=== PATIENT | male | born 1970 | race American Indian/Alaskan Native ===

== ENCOUNTER 2016-10-10 17:42 | Inpatient (IN) | payer MEDICARE, OTHER ==
[2016-10-10] MEDS ORDERED: Sodium Chloride 0.9% 1,000 ML IV ONE (19:28)
--- NOTE | 2016-10-10 19:28 | C.PDOC ---
History Of Present Illness 46 y/o male, with PMHx of multiple sclerosis, presents to ED with complaint of weakness for the last 3 days. Patient states he has been unable to walk due to weakness of lower extremities. Also, reports LUQ abdominal pain. Denies any nausea or vomiting. Patient states he has had similar weakness in the past. Denies headache, fever, chills, chest pain, SOB, or other associated symptoms. Chief Complaint (Nursing): Weakness/Neurological Deficit History Per: Patient History/Exam Limitations: no limitations Onset/Duration Of Symptoms: Days Current Symptoms Are (Timing): Still Present Fall Associated With With Symptoms: No Recent travel outside of the [place]: No Past Medical History Reviewed: Historical Data, Nursing Documentation, Vital Signs Vital Signs: Last Vital Signs Temp 97.8 F 10/10/16 17:51 Pulse 67 10/10/16 17:51 Resp 16 10/10/16 17:51 BP 118/75 10/10/16 17:51 Pulse Ox 98 10/10/16 22:34 - Medical History PMH: Multiple Sclerosis (primary progressive) Denies: Chronic Kidney Disease Family History: States: Diabetes - Social History Hx Tobacco Use: No Hx Alcohol Use: No Hx Substance Use: No - Immunization History Hx Tetanus Toxoid Vaccination: No Hx Influenza Vaccination: No Hx Pneumococcal Vaccination: No Review Of Systems Except As Marked, All Systems Reviewed And Found Negative. Constitutional: Negative for: Fever, Chills Cardiovascular: Negative for: Chest Pain Respiratory: Negative for: Shortness of Breath Gastrointestinal: Positive for: Abdominal Pain. Negative for: Nausea, Vomiting , Diarrhea Skin: Negative for: Rash Neurological: Positive for: Weakness. Negative for: Headache, Dizziness Physical Exam - Physical Exam Appears: Non-toxic, No Acute Distress Skin: Normal Color, Warm, Dry Head: Atraumatic, Normacephalic Chest: Symmetrical Cardiovascular: Rhythm Regular, No Murmur Respiratory: Normal Breath Sounds, No Rales, No Rhonchi, No Wheezing Gastrointestinal/Abdominal: Soft, Tenderness (LUQ), No Guarding, No Rebound Back: Normal Inspection Extremity: Normal ROM, Capillary Refill (< 2 sec. ), Other (weakness BL lower extremities, mild weakness left upper extremity) Neurological/Psych: Oriented x3, Normal Speech, Normal Cognition ED Course And Treatment - Laboratory Results Result Diagrams: 10/10/16 20:02 10/10/16 20:02 O2 Sat by Pulse Oximetry: 98 (RA) Pulse Ox Interpretation: Normal - Radiology CXR: Interpreted by Me, Viewed By Me CXR Interpretation: Yes: No Acute Disease. No: Infiltrates - CT Scan/US CT Abdomen/Pelvis Other Rad Studies (CT/US): Read By Radiologist, Radiology Report Reviewed CT/US Interpretation: IMPRESSION: Fatty liver, no acute solid visceral abnormality; constipation; possible mild ileus, no. obstruction; L5-S1 fusion Progress Note: EKG, CxR, CT abdomen/pelvis, bloodwork ordered and reviewed. Dr. Taveras called, being covered by Dr. Georgette Argueta for admission. Disposition Discussed With : Mary Argueta Doctor Will See Patient In The: Hospital Counseled Patient/Family Regarding: Diagnosis - Disposition Referrals: Hema Blue MD [Staff Provider] - Disposition: HOSPITALIZED Disposition Time: 22:08 Condition: STABLE - POA Present On Arrival: None - Clinical Impression Clinical Impression: Multiple sclerosis exacerbation, Abdominal pain, Gastritis - Scribe Statement The provider has reviewed the documentation as recorded by the Moi Reyna Provider Scribe Attestation: All medical record entries made by the Teddyibabe were at my direction and personally dictated by me. I have reviewed the chart and agree that the record accurately reflects my personal performance of the history, physical exam, medical decision making, and the department course for this patient. I have also personally directed, reviewed, and agree with the discharge instructions and disposition.
[2016-10-10] MEDS ORDERED: Iohexol 240 (50 ml) ONE (19:40)
[2016-10-10] MEDS ORDERED: Sodium Chloride 0.9% 1,000 ML ONE (19:40)
[2016-10-10] MEDS ORDERED: Iohexol 240 (50 ml) PO ONE (20:03)
[2016-10-10 20:18] LABS: CHLORIDE 101 mmol/L (98-107)
[2016-10-10 20:19] LABS: BASO % 0.5 % (0.0-2.0); EOS # 0.1 K/uL (0.0-0.7); EOS % 0.9 % (0.0-4.0); HEMATOCRIT 43.1 % (35.0-51.0); LYMPH # 2.9 K/uL (1.0-4.3); LYMPH % 38.8 % (20.0-40.0); MEAN CELL VOLUME 80.3 fL (80.0-94.0); MEAN CORPUSCULAR HEMOGLOBIN 26.4 pg (27.0-31.0); MEAN CORPUSCULAR HGB CONC 32.8 g/dL (33.0-37.0); MEAN PLATELET VOLUME 8.9 fL (7.2-11.7); MONO # 0.6 K/uL (0.0-0.8); MONO % 8.4 % (0.0-10.0); RED CELL DISTRIBUTION WIDTH 14.3 % (11.5-14.5); SODIUM 138 mmol/L (132-148); WHITE BLOOD COUNT 7.5 K/uL (4.8-10.8)
[2016-10-10 20:20] LABS: POTASSIUM 4.1 mmol/L (3.6-5.2)
[2016-10-10 20:22] LABS: ALB/GLOB RATIO 1.4 (1.0-2.1); ALKALINE PHOSPHATASE 52 U/L (38-126); ALT/SGPT 28 U/L (21-72); AST/SGOT 21 U/L (17-59); BILIRUBIN,TOTAL 0.6 mg/dL (0.2-1.3); BLOOD UREA NITROGEN 14 mg/dL (9-20); CARBON DIOXIDE 27 mmol/L (22-30); GFR AFRICAN-AMERICAN > 60; GLUCOSE,RANDOM 115 mg/dL (75-110); TOTAL PROTEIN 6.7 g/dL (6.3-8.3)
[2016-10-10 20:23] LABS: CALCIUM 8.7 mg/dl (8.6-10.4)
[2016-10-10 20:31] LABS: RBC URINE 36 /hpf (0-3); URINE BACTERIA RARE (<OCC); URINE BILIRUBIN NEGATIVE (NEGATIVE); URINE BLOOD 1+ (NEGATIVE); URINE COLOR Yellow (YELLOW); URINE GLUCOSE (UA) NORMAL (Normal); URINE KETONE NEGATIVE (NEGATIVE); URINE LEUKOCYTE ESTERASE TRACE Leu/uL (Negative); URINE PROTEIN NEGATIVE (NEGATIVE); URINE UROBILINOGEN NORMAL mg/dL (0.2-1.0); WBC URINE 4 /hpf (0-5)
[2016-10-10] MEDS ORDERED: Iohexol 300 100 ML IJ ONE (20:50)
--- NOTE | 2016-10-10 21:54 | CT ---
EXAM: CT Abdomen and Pelvis With Intravenous Contrast CLINICAL HISTORY: 46 years old, male; Pain; Abdominal pain; Localized; Left upper quadrant (luq); Additional info: Abd pain TECHNIQUE: Axial computed tomography images of the abdomen and pelvis with intravenous contrast. This CT exam was performed using one or more of the following dose reduction techniques: automated exposure control, adjustment of the mA and/or kV according to patient size, and/or use of iterative reconstruction technique. Coronal and sagittal reformatted images were created and reviewed. CONTRAST: 100 mL of omnipaque 300 administered intravenously. EXAM DATE/TIME: 10/10/2016 7:28 PM COMPARISON: There are no prior studies for comparison. FINDINGS: Lower thorax: Heart size is normal. There is a small hiatal hernia. There is minimal dependent atelectasis ABDOMEN: Liver: There is fatty infiltration of the liver. Gallbladder and bile ducts: Gallbladder is incompletely distended. Common bile duct is unremarkable. Pancreas: unremarkable Spleen: unremarkable Adrenals: unremarkable Kidneys and ureters: unremarkable Stomach and bowel: Stomach is partially distended. Rotation is normal. There is a mildly distended small bowel loop in the midabdomen. There is no obstruction. Terminal ileum is unremarkable. Appendix is unremarkable. There is a moderately large amount of stool throughout the colon. There is diverticulosis Appendix: See stomach and bowel PELVIS: Bladder: unremarkable Reproductive: Seminal vesicles are unremarkable. Prostate is mildly enlarged. ABDOMEN and PELVIS: Intraperitoneal space: There is no free air or free fluid. Bones/joints: There are postsurgical changes of spinal fusion L5-S1. There is a cage in the L5-S1 disc space. There is L4/L5 disc bulging. Soft tissues: There is a fat-containing umbilical hernia. Vasculature: Vascular structures are unremarkable. There are calcified phleboliths. Lymph nodes: There is shotty adenopathy. IMPRESSION: Fatty liver, no acute solid visceral abnormality; constipation; possible mild ileus, no obstruction; L5-S1 fusion Additional findings as described above.
[2016-10-10] MEDS ORDERED: Alum-Mag Hydrox-Simethicone Susp (30 mL) PO STA (22:04)
[2016-10-10] MEDS ORDERED: Alum-Mag Hydrox-Simethicone Susp (30 mL) ONE (22:27)
[2016-10-11 00:20] VITALS: RESP 20
--- NOTE | 2016-10-11 00:58 | CP.PCM.CON ---
History of Present Illness - History of Present Illness History of Present Illness: 46 y/o male, with PMHx of multiple sclerosis, presents to ED with complaint of weakness for the last 3 days. Patient states he has been unable to walk due to weakness of lower extremities. Also, reports LUQ abdominal pain. Denies any nausea or vomiting. Patient states he has had similar weakness in the past. Denies headache, fever, chills, chest pain, SOB, or other associated symptoms. Chief Complaint (Nursing): Weakness/Neurological Deficit His urine is showing 36 RBCs, 4 WBCs He is sabering from Multiple Sclerosis since more than 20 years and is my patient since more than 15 years. He is receiving Aubagio, and he keeps on changing his medicine on his own. He is also on Ampyra, Zanaflex. History Per: Patient Multiple Sclerosis Relapsing remitting initially that progressed into Progressive. 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 he has left side hemiparesis, poor coordination History/Exam Limitations: no limitations Onset/Duration Of Symptoms: Days Current Symptoms Are (Timing): Still Present Fall Associated With With Symptoms: No Recent travel outside of the [place]: No Past Medical History Reviewed: Historical Data, Nursing Documentation, Vital Signs Vital Signs: Last Vital Signs Temp 97.8 F 10/10/16 17:51 Pulse 67 10/10/16 17:51 Resp 16 10/10/16 17:51 BP 118/75 10/10/16 17:51 Pulse Ox 98 10/10/16 22:34 - Medical History PMH: Multiple Sclerosis Relapsing remitting initially that progressed into Progressive. 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 he has left side hemiparesis, poor coordination Denies: Chronic Kidney Disease Family History: States: Diabetes - Social History Hx Tobacco Use: No Hx Alcohol Use: No Hx Substance Use: No - Immunization History Hx Tetanus Toxoid Vaccination: No Hx Influenza Vaccination: No Hx Pneumococcal Vaccination: No Review Of Systems Except As Marked, All Systems Reviewed And Found Negative. Constitutional: Negative for: Fever, Chills Cardiovascular: Negative for: Chest Pain Respiratory: Negative for: Shortness of Breath Gastrointestinal: Positive for: Abdominal Pain. Negative for: Nausea, Vomiting , Diarrhea Skin: Negative for: Rash Neurological: Positive for: Weakness. Negative for: Headache, Dizziness Physical Exam - Physical Exam Appears: Non-toxic, No Acute Distress Skin: Normal Color, Warm, Dry Head: Atraumatic, Normacephalic Chest: Symmetrical Cardiovascular: Rhythm Regular, No Murmur Respiratory: Normal Breath Sounds, No Rales, No Rhonchi, No Wheezing Gastrointestinal/Abdominal: Soft, Tenderness (LUQ), No Guarding, No Rebound Back: Normal Inspection Extremity: Normal ROM, Capillary Refill (< 2 sec. ), Other (weakness BL lower extremities, mild weakness left upper extremity) Neurological/Psych: Oriented x3, Normal Speech, Normal Cognition Clinical Impression: Multiple sclerosis exacerbation, Abdominal pain, Gastritis Past Patient History - Infectious Disease Hx of Infectious Diseases: None - Past Medical History & Family History Past Medical History?: Yes - Past Social History Smoking Status: Never Smoked - CARDIAC Hx Cardiac Disorders: No - PULMONARY Hx Respiratory Disorders: No - NEUROLOGICAL Hx Multiple Sclerosis: Yes (primary progressive) - HEENT Hx HEENT Problems: No - RENAL Hx Chronic Kidney Disease: No - ENDOCRINE/METABOLIC Hx Endocrine Disorders: No - HEMATOLOGICAL/ONCOLOGICAL Hx Blood Disorders: No - INTEGUMENTARY Hx Dermatological Problems: No - MUSCULOSKELETAL/RHEUMATOLOGICAL Hx Falls: Yes - GASTROINTESTINAL Hx Gastrointestinal Disorders: No - GENITOURINARY/GYNECOLOGICAL Hx Genitourinary Disorders: No - PSYCHIATRIC Hx Substance Use: No - SURGICAL HISTORY Hx Surgeries: Yes Hx Orthopedic Surgery: Yes (spinal fusion for l4-l5) - ANESTHESIA Hx Anesthesia: Yes Hx Anesthesia Reactions: No Meds Home Medications: Home Medication List Medication Instructions Recorded Confirmed Type ALPRAZolam [Xanax] 0.25 mg PO HS PRN #10 tab 10/12/16 Rx Cyclobenzaprine [Flexeril] 5 mg PO TID tab 10/12/16 Rx Dalfampridine [Ampyra] 10 mg PO Q12 10/12/16 Rx Docusate [Colace] 100 mg PO DAILY cap 10/12/16 Rx Enoxaparin [Lovenox] 60 mg SC DAILY syr 10/12/16 Rx Furosemide [Lasix] 20 mg PO DAILY tab 10/12/16 Rx Insulin Human Regular [Novolin R] 0 unit SC ACHS unit 10/12/16 Rx Pantoprazole [Protonix Inj] 40 mg IVP DAILY vial 10/12/16 Rx Polyethylene Glycol 3350 [Miralax] 17 gm PO BID packet 10/12/16 Rx methylPREDNISolone [Solu-Medrol] 250 mg IVP Q6H #14 ml 10/12/16 Rx Allergies/Adverse Reactions: Allergies Allergy/AdvReac Type Severity Reaction Status Date / Time chocolate flavor Allergy DIZZINESS Verified 10/12/16 20:58 corn Allergy DIZZINESS Verified 10/12/16 20:58 - Medications Medications: Current Medications Sodium Chloride (Sodium Chloride 0.9%) 1,000 mls @ 100 mls/hr IV .Q10H ONE Stop: 10/11/16 05:27 Last Admin: 10/10/16 19:55 Dose: 100 mls/hr Physical Exam - Neurological Exam Additional comments: Mental Status: Awake, Alert, Oriented X 3, Normal Memory X 3 Speech is Dysarthric, fluent coherent Cranial Nerves II to XII: Left facial Palsy UMNL type Left BETTY Tongue is central, normal Gag reflex. He is able to shrug his shoulders. less on the left side. Motor: Increased spastic tone on the left side of UE and LE Left Pronator Drift left hemiparesis DTR: exaggerated on the left Toes are upgoing on the left side Sensory: sense of pain on the left side Cerebellar: Poor coordination in general, mainly on the left side. Abnormal FNT of the Left and Poor movements on the Left Stature and Gait: Unable to walk or Stand. Results - Vital Signs Recent Vital Signs: Last Vital Signs Temp 97.6 F 10/11/16 00:18 Pulse 61 10/11/16 00:18 Resp 20 10/11/16 00:18 BP 125/80 10/11/16 00:18 Pulse Ox 95 10/11/16 00:18 - Labs Result Diagrams: 10/10/16 20:02 10/10/16 20:02 Assessment & Plan (1) Abdominal pain Status: Acute (2) Gastritis Status: Acute (3) Multiple sclerosis exacerbation Status: Acute (4) Back strain Status: Chronic (5) Difficulty walking Status: Acute (6) Facial palsy Assessment and Plan: mild condition of left Facial Palsy. Status: Acute
[2016-10-11] MEDS: Sucralfate 1 gm/10 ml Oral Susp UD PO STA ×2 (01:13→02:37)
[2016-10-11] MEDS: (Novolin R) Insulin Human Regular 100 units/ml vial SC SCH ×5 (08:19→22:05)
--- NOTE | 2016-10-11 08:55 | RAD ---
PROCEDURE: CHEST RADIOGRAPH, 1 VIEW HISTORY: Abdominal pain COMPARISON: 03/14/2014 FINDINGS: LUNGS: No focal infiltrate or effusion. Upper lobe granulomatous changes. PLEURA: No pneumothorax or pleural fluid seen. CARDIOVASCULAR: Normal. OSSEOUS STRUCTURES: No significant abnormalities. VISUALIZED UPPER ABDOMEN: Normal. OTHER FINDINGS: None. IMPRESSION: No focal infiltrate or effusion. Upper lobe granulomatous changes.
[2016-10-11] MEDS ORDERED: DALFAMPRIDINE 10 MG PO SCH (10:00)
--- NOTE | 2016-10-11 11:27 | CP.PCM.HP ---
History of Present Illness - History of Present Illness History of Present Illness: h and p dicteted. Present on Admission - Present on Admission Any Indicators Present on Admission: No History of DVT/PE: No History of Uncontrolled Diabetes: No Review of Systems - EENT Eyes: absent: Decreased Night Vision, Diplopia Nose/Mouth/Throat: absent: Epistaxis, Dysphagia - Cardiovascular Cardiovascular: absent: Dyspnea on Exertion, Edema - Respiratory Respiratory: absent: Snoring - Gastrointestinal Gastrointestinal: absent: Excessive Flatus - Genitourinary Genitourinary: absent: Change in Urinary Stream - Musculoskeletal Musculoskeletal: absent: Arthralgias - Integumentary Integumentary: absent: Change in Pigmentation Past Patient History - Infectious Disease Hx of Infectious Diseases: None - Past Medical History & Family History Past Medical History?: Yes - Past Social History Smoking Status: Never Smoked Chewing Tobacco Use: No Cigar Use: No Alcohol: None - CARDIAC Hx Cardiac Disorders: No - PULMONARY Hx Respiratory Disorders: No - NEUROLOGICAL Hx Multiple Sclerosis: Yes (primary progressive) - HEENT Hx HEENT Problems: No - RENAL Hx Chronic Kidney Disease: No - ENDOCRINE/METABOLIC Hx Endocrine Disorders: No - HEMATOLOGICAL/ONCOLOGICAL Hx Blood Disorders: No - INTEGUMENTARY Hx Dermatological Problems: No - MUSCULOSKELETAL/RHEUMATOLOGICAL Hx Falls: Yes - GASTROINTESTINAL Hx Gastrointestinal Disorders: No - GENITOURINARY/GYNECOLOGICAL Hx Genitourinary Disorders: No - PSYCHIATRIC Hx Substance Use: No - SURGICAL HISTORY Hx Surgeries: Yes Hx Orthopedic Surgery: Yes (spinal fusion for l4-l5) - ANESTHESIA Hx Anesthesia: Yes Hx Anesthesia Reactions: No Meds Home Medications: Home Medication List Medication Instructions Recorded Confirmed Type Dalfampridine [Ampyra] 10 mg PO Q12 10/12/16 Rx Docusate [Colace] 100 mg PO DAILY cap 10/12/16 Rx Allergies/Adverse Reactions: Allergies Allergy/AdvReac Type Severity Reaction Status Date / Time chocolate flavor Allergy DIZZINESS Verified 10/12/16 20:58 corn Allergy DIZZINESS Verified 10/12/16 20:58 Physical Exam - Constitutional Appears: Well - Head Exam Head Exam: ATRAUMATIC, NORMAL INSPECTION, NORMOCEPHALIC - Eye Exam Eye Exam: EOMI, Normal appearance, PERRL Pupil Exam: NORMAL ACCOMODATION, PERRL - ENT Exam ENT Exam: Mucous Membranes Moist, Normal Exam - Neck Exam Neck exam: Positive for: Normal Inspection - Respiratory Exam Respiratory Exam: Clear to Auscultation Bilateral, NORMAL BREATHING PATTERN - Cardiovascular Exam Cardiovascular Exam: REGULAR RHYTHM - GI/Abdominal Exam GI & Abdominal Exam: Normal Bowel Sounds, Soft. absent: Tenderness - Rectal Exam Rectal Exam: NORMAL INSPECTION - Exam Exam: Circumcision, NORMAL INSPECTION External exam: NORMAL EXTERNAL EXAM Speculum exam: NORMAL SPECULUM EXAM Bimanual exam: NORMAL BIMANUAL EXAM - Extremities Exam Extremities exam: Positive for: normal inspection - Back Exam Back exam: NORMAL INSPECTION - Neurological Exam Neurological exam: Alert, CN II-XII Intact, Normal Gait, Oriented x3, Reflexes Normal - Psychiatric Exam Psychiatric exam: Normal Affect, Normal Mood - Skin Skin Exam: Dry, Intact, Normal Color, Warm Results - Vital Signs Recent Vital Signs: Last Vital Signs Temp 98.3 F 10/11/16 08:08 Pulse 61 10/11/16 08:08 Resp 20 10/11/16 08:08 BP 99/60 L 10/11/16 08:08 Pulse Ox 98 10/11/16 08:08 - Labs Result Diagrams: 10/10/16 20:02 10/10/16 20:02 Labs: Laboratory Results - last 24 hr 10/11/16 10/11/16 10/11/16 06:26 06:47 06:47 ESR POC Glucose (mg/dL) 81 C-React Prot High Sens Vitamin B12 > 1000 H 25-OH Vitamin D Total 104.0 H 10/11/16 10/11/16 06:47 06:47 ESR 2 POC Glucose (mg/dL) C-React Prot High Sens 0.33 L Vitamin B12 25-OH Vitamin D Total Assessment & Plan - Assessment and Plan (Free Text) Assessment: MS. Plan: NEURO EVAL - Date & Time Date: 10/11/16 Time: 11:32 Decision To Admit - Pt Status Changed To: Hospital Disposition Of: Inpatient - Admit Certification Admit to Inpatient:: After my assessment, the patient will require hospitalization for at least two midnights. This is because of the severity of symptoms shown, intensity of services needed, and/or the medical risk in this patient being treated as an outpatient. - . Bed Request Type: Telemetry Admitting Physician: TIFFANIE
--- NOTE | 2016-10-11 12:25 | HP ---
HISTORY OF PRESENT ILLNESS: This is a 46-year-old male with history of multiple sclerosis. The tashia ent came to the Emergency Room complaining of weakness for the last 3 days. The patient states that he has been unable to walk due to weakness of lower extremity. The patient also reports left upper q uadrant abdominal pain. The patient denies nausea or vomiting. The patient also has similar weaknes s in the past. The patient denies headache, fever, chills, chest pain, shortness of breath or other associated symptoms. REVIEW OF SYSTEMS: CARDIOVASCULAR: Negative for chest pain. RESPIRATORY: Negative for shortness of breath. GASTROINTESTINAL: As mentioned above. CENTRAL NERVOUS SYSTEM: The patient complains of generalized weakness and unable to walk because of his previous condition, multiple sclerosis. EXTREMITIES: No edema of the legs. GENITOURINARY: No urinary complaints. PSYCHIATRIC: The patient is stable. All other systems are negative. PAST MEDICAL HISTORY: History of multiple sclerosis. MEDICATIONS: Muscle relaxant, Lasix. SOCIAL HISTORY: Nonsmoker, nonalcoholic, no IVDA. FAMILY HISTORY: No known family history. ALLERGIES: THE PATIENT IS ALLERGIC TO CHOCOLATE, CORN, PEANUTS. PHYSICAL EXAMINATION: GENERAL: The patient alert, orientated, comfortable, with left upper quadrant pain. VITAL SIGNS: Temperature 97.8, pulse 67, respirations 16, and blood pressure 118/75 mmHg, pulse ox i s 98% on room air. HEENT: Normal. NECK: JVP is flat. Carotids, no bruit. LUNGS: No rales, no wheezing. HEART: S1, S2 normal. No gallop, no murmur. ABDOMEN: Soft, mildly tender. No rebound. No mass. CENTRAL NERVOUS SYSTEM: Generalized weakness present. No focal neurological complaints. LABORATORY DATA: On admission, lab work is grossly within normal limits. IMPRESSION: Acute exacerbation of multiple sclerosis. Abdominal pain. Case was discussed with ____, neurologist. The patient was advised to be admitted. The patient was started on Solu-Medrol. Neurologic evaluation. We will continue all the medications. The patient needs EEG. Other workup as needed. Mary Argueta MD cc: [phone] TT: 10/11/2016 12:24:41 sn
[2016-10-11] MEDS: Enoxaparin 60 mg Syringe SC SCH (12:56)
--- NOTE | 2016-10-11 13:09 | CP.PCM.CON ---
History of Present Illness - History of Present Illness History of Present Illness: 46 y/o male, with PMHx of multiple sclerosis, presents to ED with complaint of weakness for the last 3 days. Patient states he has been unable to walk due to weakness of lower extremities. Also, reports LUQ abdominal pain. Denies any nausea or vomiting. Patient states he has had similar weakness in the past. Denies headache, fever, chills, chest pain, SOB, or other associated symptoms. Chief Complaint (Nursing): Weakness/Neurological Deficit His urine is showing 36 RBCs, 4 WBCs He is sabering from Multiple Sclerosis since more than 20 years and is my patient since more than 15 years. He is receiving Aubagio, and he keeps on changing his medicine on his own. He is also on Ampyra, Zanaflex. History Per: Patient Multiple Sclerosis Relapsing remitting initially that progressed into Progressive. 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 he has left side hemiparesis, poor coordination History/Exam Limitations: no limitations Onset/Duration Of Symptoms: Days Current Symptoms Are (Timing): Still Present Fall Associated With With Symptoms: No Recent travel outside of the [place]: No Past Medical History - Medical History PMH: Multiple Sclerosis Relapsing remitting initially that progressed into Progressive. 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 he has left side hemiparesis, poor coordination Denies: Chronic Kidney Disease Review of Systems - Constitutional Constitutional: As Per HPI - EENT Eyes: absent: As Per HPI, Blind Spots, Blurred Vision, Change in Vision, Decreased Night Vision, Diplopia, Discharge, Dry Eye, Exophthalmos, Floaters, Irritation, Itchy Eyes, Loss of Peripheral Vision, Pain, Photophobia, Requires Corrective Lenses, Sees Flashes, Spots in Vision, Tunnel Vision, Other Visual Disturbances, Loss of Vision, Other Ears: absent: As Per HPI, Decreased Hearing, Ear Discharge, Ear Pain, Tinnitus, Abnormal Hearing, Disequilibrium, Dizziness, Other Nose/Mouth/Throat: absent: As Per HPI, Epistaxis, Nasal Congestion, Nasal Discharge, Nasal Obstruction, Nasal Trauma, Nose Pain, Post Nasal Drip, Sinus Pain, Sinus Pressure, Bleeding Gums, Change in Voice, Dental Pain, Dry Mouth, Dysphagia, Halitosis, Hoarsness, Lip Swelling, Mouth Lesions, Mouth Pain, Odynophagia, Sore Throat, Throat Swelling, Tongue Swelling, Facial Pain, Neck Pain, Neck Mass, Other - Cardiovascular Cardiovascular: absent: As Per HPI, Acrocyanosis, Chest Pain, Chest Pain at Rest , Chest Pain with Activity, Claudication, Diaphoresis, Dyspnea, Dyspnea on Exertion, Edema, Irregular Heart Rhythm, Pain Radiating to Arm/Neck/Jaw, Leg Edema, Leg Ulcers, Lightheadedness, Orthopnea, Palpitations, Paroxysmal Nocturnal Dyspnea, Pedal Edema, Radiating Pain, Rapid Heart Rate, Slow Heart Rate, Syncope, Other - Respiratory Respiratory: absent: As Per HPI, Cough, Dyspnea, Hemoptysis, Dyspnea on Exertion , Wheezing, Snoring, Stridor, Pain on Inspiration, Chest Congestion, Excessive Mucous Production, Change in Mucous Color, Pain with Coughing, Other - Gastrointestinal Gastrointestinal: absent: As Per HPI, Abdominal Pain, Belching, Bloating, Change in Bowel Habits, Change in Stool Character, Coffee Ground Emesis, Constipation, Cramping, Diarrhea, Dyspepsia, Dysphagia, Early Satiety, Excessive Flatus, Fecal Incontinence, Heartburn, Hematemesis, Hematochezia, Loose Stools, Melena, Nausea, Odynophagia, Temesmus, Vomiting, Other - Genitourinary Genitourinary: absent: As Per HPI, Change in Urinary Stream, Difficulty Urinating, Dysuria, Flank Pain, Hematuria, Pyuria, Nocturia, Urinary Incontinence, Urinary Frequency, Urinary Hesitance, Urinary Urgency, Voiding Freq/Small Amts, Freq UTI, Hx Renal/Bladder Calculi, Hx /Renal Surgery, Bladder Distension, Other - Musculoskeletal Musculoskeletal: absent: As Per HPI, Abnormal Gait, Arthralgias, Atrophy, Back Pain, Deformity, Joint Swelling, Limited Range of Motion, Loss of Height, Muscle Cramps, Muscle Weakness, Myalgias, Neck Pain, Numbness, Radiating Pain into Limb, Stiffness, Tingling, Other - Integumentary Integumentary: absent: As Per HPI, Acne, Alopecia, Bleeding Lesions, Change in Hair, Change in Nails, Change in Pigmentation, Changing Lesions, Dry Skin, Erythema, Furuncle, Hirsutism, Lesions, New Lesions, Non-Healing Lesions, Photosensitivity, Pruritus, Rash, Skin Pain, Skin Ulcer, Sores, Striae, Swelling , Unusual Bruising, Wounds, Jaundice, Other - Neurological Neurological: As Per HPI - Psychiatric Psychiatric: absent: As Per HPI, Abnormal Sleep Pattern, Anhedonia, Anxiety, Auditory Hallucinations, Behavioral Changes, Change in Appetite, Change in Libido, Confusion, Depression, Difficulty Concentrating, Hallucinations, Homicidal Ideation, Hopelessness, Irritability, Memory Loss, Mood Swings, Panic Attacks, Paranoia, Suicidal Ideation, Visual Hallucinations, Tactile Hallucinations, Other - Endocrine Endocrine: absent: As Per HPI, Change in Body Appearance, Change in Libido, Cold Intolorance, Deepening of Voice, Excessive Sweating, Fatigue, Flushing, Heat Intolorance, Increase in Ring/Shoe/Hat Size, Palpitations, Polydipsia, Polyphagia, Polyuria, Other - Hematologic/Lymphatic Hematologic: absent: As Per HPI, Easy Bleeding, Easy Bruising, Lymphadenopathy, Other Past Patient History - Infectious Disease Hx of Infectious Diseases: None - Past Medical History & Family History Past Medical History?: Yes - Past Social History Smoking Status: Never Smoked Chewing Tobacco Use: No Cigar Use: No Alcohol: None - CARDIAC Hx Cardiac Disorders: No - PULMONARY Hx Respiratory Disorders: No - NEUROLOGICAL Hx Multiple Sclerosis: Yes (primary progressive) - HEENT Hx HEENT Problems: No - RENAL Hx Chronic Kidney Disease: No - ENDOCRINE/METABOLIC Hx Endocrine Disorders: No - HEMATOLOGICAL/ONCOLOGICAL Hx Blood Disorders: No - INTEGUMENTARY Hx Dermatological Problems: No - MUSCULOSKELETAL/RHEUMATOLOGICAL Hx Falls: Yes - GASTROINTESTINAL Hx Gastrointestinal Disorders: No - GENITOURINARY/GYNECOLOGICAL Hx Genitourinary Disorders: No - PSYCHIATRIC Hx Substance Use: No - SURGICAL HISTORY Hx Surgeries: Yes Hx Orthopedic Surgery: Yes (spinal fusion for l4-l5) - ANESTHESIA Hx Anesthesia: Yes Hx Anesthesia Reactions: No Meds Home Medications: Home Medication List Medication Instructions Recorded Confirmed Type ALPRAZolam [Xanax] 0.25 mg PO HS PRN #10 tab 10/12/16 Rx Cyclobenzaprine [Flexeril] 5 mg PO TID tab 10/12/16 Rx Dalfampridine [Ampyra] 10 mg PO Q12 10/12/16 Rx Docusate [Colace] 100 mg PO DAILY cap 10/12/16 Rx Enoxaparin [Lovenox] 60 mg SC DAILY syr 10/12/16 Rx Furosemide [Lasix] 20 mg PO DAILY tab 10/12/16 Rx Insulin Human Regular [Novolin R] 0 unit SC ACHS unit 10/12/16 Rx Pantoprazole [Protonix Inj] 40 mg IVP DAILY vial 10/12/16 Rx Polyethylene Glycol 3350 [Miralax] 17 gm PO BID packet 10/12/16 Rx methylPREDNISolone [Solu-Medrol] 250 mg IVP Q6H #14 ml 10/12/16 Rx Allergies/Adverse Reactions: Allergies Allergy/AdvReac Type Severity Reaction Status Date / Time chocolate flavor Allergy Verified 10/10/16 19:26 corn Allergy Verified 10/10/16 19:26 peanuts Allergy Unknown ANAPHYLAXIS Uncoded 04/22/15 12:38 peas Allergy Unknown SHORTNESS Uncoded 04/22/15 12:38 OF BREATH - Medications Medications: Current Medications Alprazolam (Xanax) 0.25 mg PO PRN Stop: 10/18/16 02:47 Cyclobenzaprine HCl (Flexeril) 5 mg PO TID [facility] Last Admin: 10/11/16 12:53 Dose: 5 mg Docusate Sodium (Colace) 100 mg PO DAILY [facility] Last Admin: 10/11/16 12:53 Dose: 100 mg Enoxaparin Sodium (Lovenox) 60 mg SC DAILY [facility] Last Admin: 10/11/16 12:56 Dose: 60 mg Furosemide (Lasix) 20 mg PO DAILY [facility] Last Admin: 10/11/16 12:53 Dose: 20 mg Home Med (Dalfampridine [Ampyra]) 10 mg PO Q12 [facility] Methylprednisolone 250 mg/ (Sodium Chloride) 104 mls @ 208 mls/hr IVP Q6H [facility] Stop: 10/16/16 03:01 Last Admin: 10/11/16 09:51 Dose: 208 mls/hr Insulin Human Regular (Novolin R) 0 unit SC ACHS [facility] PRN Reason: Protocol Last Admin: 10/11/16 12:00 Dose: Not Given Pantoprazole Sodium (Protonix Inj) 40 mg IVP DAILY [facility] Last Admin: 10/11/16 12:51 Dose: 40 mg Pneumococcal Polyvalent Vaccine (Pneumovax 23 Vaccine) 0.5 ml IM .ONCE ONE Stop: 10/13/16 14:01 Physical Exam - Constitutional Appears: Non-toxic, Cachectic, Chronically Ill - Head Exam Head Exam: NORMOCEPHALIC - Eye Exam Eye Exam: PERRL. absent: Scleral icterus - ENT Exam ENT Exam: Mucous Membranes Dry, Normal External Ear Exam - Neck Exam Neck exam: Negative for: Lymphadenopathy, Thyromegaly - Respiratory Exam Respiratory Exam: Decreased Breath Sounds, Rhonchi - Cardiovascular Exam Cardiovascular Exam: REGULAR RHYTHM, +S1, +S2 - GI/Abdominal Exam GI & Abdominal Exam: Diminished Bowel Sounds, Soft. absent: Tenderness - Rectal Exam Rectal Exam: Deferred - Exam Exam: NORMAL INSPECTION - Extremities Exam Extremities exam: Negative for: calf tenderness, pedal edema - Back Exam Back exam: absent: CVA tenderness (L), CVA tenderness (R) - Neurological Exam Neurological exam: Abnormal Gait, Alert, Motor Sensory Deficit, Oriented x3 - Psychiatric Exam Psychiatric exam: Depressed - Skin Skin Exam: Dry Results - Vital Signs Recent Vital Signs: Last Vital Signs Temp 98.3 F 10/11/16 08:08 Pulse 61 10/11/16 08:08 Resp 20 10/11/16 08:08 BP 115/82 10/11/16 12:53 Pulse Ox 98 10/11/16 08:08 - Labs Result Diagrams: 10/10/16 20:02 10/10/16 20:02 Labs: Laboratory Results - last 24 hr 10/11/16 10/11/16 10/11/16 06:26 06:47 06:47 ESR POC Glucose (mg/dL) 81 C-React Prot High Sens Vitamin B12 > 1000 H 25-OH Vitamin D Total 104.0 H 10/11/16 10/11/16 06:47 06:47 ESR 2 POC Glucose (mg/dL) C-React Prot High Sens 0.33 L Vitamin B12 25-OH Vitamin D Total Assessment & Plan (1) Multiple sclerosis exacerbation Status: Acute - Assessment and Plan (Free Text) Assessment: r/o infection await cultures
--- NOTE | 2016-10-11 19:22 | VASCLAB ---
PROCEDURE: HISTORY: R/O CVA COMPARISON: None available. TECHNIQUE: Grayscale and duplex Doppler evaluation of the cervical carotid and vertebral arteries were performed. The common carotid, carotid bifurcations and cervical Internal Carotid Artery (ICA) and proximal External Carotid Artery (ECA) were evaluated. The vertebral arteries were evaluated for gross patency and flow direction. Report prepared by Kana Doshi, BS, RVT FINDINGS: RIGHT CAROTID ARTERIES: 1. Common Carotid Artery: No significant focal plaque formation of the right common carotid artery. Maximum Peak Systolic velocity: 137 cm/sec: End-diastolic velocity 22 cm/sec. 2. Carotid Bifurcation: No significant focal plaque formation. Maximum Peak Systolic velocity: 119 cm/sec: End-diastolic velocity 16 cm/sec. 3. Internal Carotid Artery: Minimal plaque formation of the right proximal ICA which does not result in hemodynamically significant stenosis. Plaque description: Homogeneous 3.1. Proximal Segment: Peak systolic velocity 94 cm/sec: End-diastolic velocity 23 cm/sec - % stenosis 0-15% 3.2. Middle Segment: Peak systolic velocity 75 cm/sec: End-diastolic velocity 25 cm/sec - % stenosis 0-15% 3.3. Distal Segment: Peak systolic velocity 72 cm/sec: End-diastolic velocity 28 cm/sec - % stenosis 0-15% 4. External Carotid Artery: No significant focal plaque formation. Peak systolic velocity 109 cm/sec 5. ICA/CCA Ratio: 0.9 LEFT CAROTID ARTERIES: 1. Common Carotid Artery: No significant focal plaque formation of the left common carotid artery. Maximum Peak Systolic velocity: 136 cm/sec: End-diastolic velocity 28 cm/sec. 2. Carotid Bifurcation: No significant focal plaque formation. Maximum Peak Systolic velocity: 103 cm/sec: End-diastolic velocity 22 cm/sec. 3. Internal Carotid Artery: Minimal plaque formation of the left proximal ICA which does not result in hemodynamically significant stenosis. Plaque description: Homogeneous 3.1. Proximal Segment: Peak systolic velocity 60 cm/sec: End-diastolic velocity 23 cm/sec - % stenosis 0-15% 3.2. Middle Segment: Peak systolic velocity 68 cm/sec: End-diastolic velocity 23 cm/sec - % stenosis 0-15% 3.3. Distal Segment: Peak systolic velocity 95 cm/sec: End-diastolic velocity 38 cm/sec - % stenosis 0-15% 4. External Carotid Artery: No significant focal plaque formation. Peak systolic velocity cm/sec 5. ICA/CCA Ratio: 0.8 VERTEBRAL ARTERIES: 1. Right Vertebral Artery: The right vertebral artery flow direction is antegrade. 2. Left Vertebral Artery: The left vertebral artery flow direction is antegrade. OTHER FINDINGS: 1. Right Brachial Blood pressure: 128 mmHg. 2. Left Brachial Blood pressure: 132 mmHg. IMPRESSION: RIGHT: Duplex scan does not suggest hemodynamically significant stenosis of the right extracranial carotid arteries. LEFT: Duplex scan does not suggest hemodynamically significant stenosis of the left extracranial carotid arteries.
[2016-10-12] MEDS: (Novolin R) Insulin Human Regular 100 units/ml vial SC SCH ×3 (07:53→17:24)
[2016-10-12 08:13] LABS: RBC URINE 14 /hpf (0-3); URINE BACTERIA MANY (<OCC); URINE BILIRUBIN NEGATIVE (NEGATIVE); URINE BLOOD 1+ (NEGATIVE); URINE COLOR Yellow (YELLOW); URINE GLUCOSE (UA) 1+ mg/dL (Normal); URINE KETONE NEGATIVE (NEGATIVE); URINE LEUKOCYTE ESTERASE NEG Leu/uL (Negative); URINE PROTEIN NEGATIVE (NEGATIVE); URINE UROBILINOGEN NORMAL mg/dL (0.2-1.0); WBC URINE 3 /hpf (0-5)
[2016-10-12] MEDS: Enoxaparin 60 mg Syringe SC SCH (09:47)
--- NOTE | 2016-10-12 12:08 | CARD ---
APPROVED REPORT EKG Measurement Heart [id number] <Conclusion> Normal sinus rhythm ST elevation, probably due to early repolarization Borderline ECG
[2016-10-12] MEDS: POLYETHYLENE GLYCOL 3350 17 GM/Dose PACKET PO SCH ×2 (12:37→17:29)
--- NOTE | 2016-10-12 13:24 | CP.PCM.PN ---
Subjective - Date & Time of Evaluation Date of Evaluation: 10/12/16 Time of Evaluation: 13:21 - Subjective Subjective: SEVERE LEG WEAKNESS PRESENT. ABD PAIN PRESENT. CONSTIPATED. Objective - Vital Signs/Intake and Output Vital Signs (last 24 hours): Temp Pulse Resp BP Pulse Ox 97.8 F 77 20 120/74 97 10/12/16 09:37 10/12/16 09:37 10/12/16 09:37 10/12/16 09:50 10/12/16 09:37 Intake and Output: 10/12/16 10/12/16 06:59 18:59 Intake Total 1760 Output Total 750 Balance 1010 - Medications Medications: Current Medications Alprazolam (Xanax) 0.25 mg PO HS PRN Stop: 10/18/16 02:47 Cyclobenzaprine HCl (Flexeril) 5 mg PO TID [facility] Last Admin: 10/12/16 09:48 Dose: 5 mg Docusate Sodium (Colace) 100 mg PO DAILY [facility] Last Admin: 10/12/16 09:48 Dose: 100 mg Enoxaparin Sodium (Lovenox) 60 mg SC DAILY [facility] Last Admin: 10/12/16 09:47 Dose: 60 mg Furosemide (Lasix) 20 mg PO DAILY [facility] Last Admin: 10/12/16 09:50 Dose: 20 mg Methylprednisolone 250 mg/ (Sodium Chloride) 104 mls @ 208 mls/hr IVPB Q6H [facility] Last Admin: 10/12/16 09:49 Dose: 208 mls/hr Insulin Human Regular (Novolin R) 0 unit SC ACHS [facility] PRN Reason: Protocol Last Admin: 10/12/16 12:37 Dose: 2 unit Pantoprazole Sodium (Protonix Inj) 40 mg IVP DAILY [facility] Last Admin: 10/12/16 09:50 Dose: 40 mg Pneumococcal Polyvalent Vaccine (Pneumovax 23 Vaccine) 0.5 ml IM .ONCE ONE Stop: 10/13/16 14:01 Polyethylene Glycol (Miralax) 17 gm PO BID [facility] Stop: 10/12/16 18:01 Last Admin: 10/12/16 12:37 Dose: 17 gm - Constitutional Appears: Non-toxic, No Acute Distress - Eye Exam Eye Exam: Normal appearance - ENT Exam ENT Exam: Mucous Membranes Moist, Normal External Ear Exam - Respiratory Exam Respiratory Exam: NORMAL BREATHING PATTERN - Cardiovascular Exam Cardiovascular Exam: REGULAR RHYTHM, +S1, +S2 - GI/Abdominal Exam GI & Abdominal Exam: Soft, Tenderness - Extremities Exam Additional comments: WEAK LOWER EXT. - Neurological Exam Neuro motor strength exam: Left Lower Extremity: 0, Right Lower Extremity: 0 - Psychiatric Exam Psychiatric exam: Normal Affect, Normal Mood Assessment and Plan - Assessment and Plan (Free Text) Assessment: MULTIPLE SCLEROSIS. Plan: FOR IV SOLUMEDROL. PT. NEEDS ACUTE REHAB. MIRALAX.
--- NOTE | 2016-10-12 15:49 | CP.PCM.PN ---
Subjective - Date & Time of Evaluation Date of Evaluation: 10/12/16 Time of Evaluation: 13:00 - Subjective Subjective: [employer] NOTES 46 yr old male admitted for incr. weakness, abdominal pain , exc. MS seen by Dr. Su Young. Georgette roberto today Pt accepted to acute rehab for PT D/W Dr. Blue, cleared for discharge to rehab and continue solumedrol 250 mg ivbp q 6 hrs x 3. 5 days D/W Dr. Roberto, stable for discharge to rehab today Discharge plan discussed with patient , who understands and agrees with plan Objective - Vital Signs/Intake and Output Vital Signs (last 24 hours): Temp Pulse Resp BP Pulse Ox 97.8 F 77 20 120/74 97 10/12/16 09:37 10/12/16 09:37 10/12/16 09:37 10/12/16 09:50 10/12/16 09:37 Intake and Output: 10/12/16 10/12/16 06:59 18:59 Intake Total 1760 Output Total 750 Balance 1010 - Medications Medications: Current Medications Alprazolam (Xanax) 0.25 mg PO HS PRN Stop: 10/18/16 02:47 Cyclobenzaprine HCl (Flexeril) 5 mg PO TID [facility] Last Admin: 10/12/16 14:03 Dose: 5 mg Docusate Sodium (Colace) 100 mg PO DAILY [facility] Last Admin: 10/12/16 09:48 Dose: 100 mg Enoxaparin Sodium (Lovenox) 60 mg SC DAILY [facility] Last Admin: 10/12/16 09:47 Dose: 60 mg Furosemide (Lasix) 20 mg PO DAILY [facility] Last Admin: 10/12/16 09:50 Dose: 20 mg Methylprednisolone 250 mg/ (Sodium Chloride) 104 mls @ 208 mls/hr IVPB Q6H [facility] Last Admin: 10/12/16 09:49 Dose: 208 mls/hr Insulin Human Regular (Novolin R) 0 unit SC ACHS [facility] PRN Reason: Protocol Last Admin: 10/12/16 12:37 Dose: 2 unit Ondansetron HCl (Zofran Tab) 4 mg PO ONCE ONE Stop: 10/12/16 16:01 Pantoprazole Sodium (Protonix Inj) 40 mg IVP DAILY [facility] Last Admin: 05/03/17 09:50 Dose: 40 mg Pneumococcal Polyvalent Vaccine (Pneumovax 23 Vaccine) 0.5 ml IM .ONCE ONE Stop: 10/13/16 14:01 Polyethylene Glycol (Miralax) 17 gm PO BID [facility] Stop: 10/12/16 18:01 Last Admin: 10/12/16 12:37 Dose: 17 gm
[2016-10-12 15:54] VITALS: BP 124/72; PULSE 94; TEMP 98.2; O2SAT 98
--- NOTE | 2016-10-13 13:28 | DS ---
This is a 46-year-old male, came to the Emergency Room with history of increased weakness in the lowe r extremities. The patient has a known case of multiple sclerosis. The patient denies having any ch est pain or shortness of breath. The patient has mild abdominal pain. No vomiting or nausea. No di arrhea. The patient has constipation. PHYSICAL EXAMINATION: GENERAL: The patient was awake, alert, comfortable. VITAL SIGNS: Normal. LUNGS: Clear. HEART: Within normal limit. ABDOMEN: Soft, nontender, no organomegaly. CENTRAL NERVOUS SYSTEM: Lower extremity weakness present. LABORATORY WORK: Within normal limits. From the Emergency Room, Dr. Blue was consulted for multiple sclerosis. The patient was decided to be admitted for IV Solu-Medrol treatment. The patient was treated with IV Solu-Medrol. The patient was started on physical therapy. The [facility] FINAL DIAGNOSES: Exacerbation of multiple sclerosis. Abdominal pain and constipation. Mary Argueta MD cc: [phone] TT: 10/13/2016 13:27:34 en
[2016-10-13] MEDS ORDERED: Pneumococcal 23-Valent Vaccine IM ONE (14:00)
--- NOTE | 2016-10-18 09:33 | EEG ---
DATE: 10/11/2016 The record is obtained for a history of multiple sclerosis exacerbation, abdominal pain, confusion, l eft-sided weakness, rule out encephalopathy, rule out seizures. The record was obtained while patien t was awake, drowsy. The record was symmetrically equal on both sides with a velocity of 8-9 cycles per second. The waves are fairly well-formed, fairly well organized with posterior distribution, mod erate in amplitude, reactive to eye opening by attenuation. There are no abnormal discharges. No sp mary, no polyspike, no sharp wave, no focal slowing, no paroxysmal discharge. There were periods of d rowsiness, during which attenuation and slowing of the record were seen and theta waves were seen. T here were no periods of sleep. The record showed eye movement artifact, electrode artifact, and musc le movement artifacts and sweat artifacts. Photic stimulation was performed and did not produce any change. Hyperventilation was omitted. SUMMARY: This is a normal awake and drowsy electroencephalogram. Clinical correlation is recommende d. Hema Blue MD cc: [id number] TT: 10/18/2016 07:56:31 Confirmation # [id number] Dictation # [id number] en
== END 2016-10-12 20:08 | disposition home or self-care (01) | DRG 60 ==
LOC: C.ER 17:42 → C.9E 22:25 → C.5T 23:27
PROVIDERS: ADMIT Internal Medicine; ATTEND Internal Medicine
DX: G35 Multiple sclerosis (principal); E11.9 Type 2 diabetes mellitus without complications; G51.0 Bell's palsy; K29.70 Gastritis, unspecified, without bleeding; G81.94 Hemiplegia, unspecified affecting left nondominant side; K59.00 Constipation, unspecified; Z79.4 Long term (current) use of insulin; Z83.3 Family history of diabetes mellitus; Z98.1 Arthrodesis status

== ENCOUNTER 2018-10-03 09:20 | Day surgery (SDC) | payer MEDICARE ==
[2018-10-03 10:24] VITALS: BMI 25.7
[2018-10-03] MEDS ORDERED: Propofol 10 mg/ml Inj (20 ML) ONE (10:58)
[2018-10-03] MEDS ORDERED: Lactated Ringer's 500 ML IV ONE (12:05)
[2018-10-03 13:18] VITALS: RESP 16
[2018-10-03 13:21] VITALS: TEMP 97.3; O2SAT 98
[2018-10-03 13:35] VITALS: BP 120/80; PULSE 66
== END 2018-10-03 13:50 | disposition home or self-care (01) ==
LOC: C.ENDO 09:20
PROVIDERS: ATTEND Internal Medicine Gastroenterology
DX: K64.8 Other hemorrhoids (principal)
CPT/HCPCS: 45378; J2001; J2704; J7120